=== PATIENT | male | born 1930 | race Caucasian/White ===

== ENCOUNTER → 2016-05-21 | Outpatient (CLI) | payer MEDICARE ==
[~2016-05-21] MED LIST: ASPI-COR81 M1 PO; ATENOLOL25 MG PO; AUGMENTIN 875-875 MG PO; CARBIDOPA AND L1 TAB PO; COREG25 MG PO; COREG3.125 MG PO; COUMADIN1 M1 PO; Coumadin2 MG PO; DAILY MULTIPLE1 TA6 PO; DIABETA5 MG PO; ECONAZOLE NITRATE11 T; FLOMAX0.4 MG PO; FLUDROCORTISON0.1 MG PO; JANTOVEN6 M1 PO; KEFLEX500 M1 PO; LISINOPRIL20 MG PO; LOVASTATIN40 MG PO; METFORMIN HCL500 MG PO; OMEPRAZOLE20 MG PO; OMEPRAZOLE40 MG PO; OXYBUTYNIN CHLO15 MG PO; PAROXETINE HCL10 MG PO; PAROXETINE10 MG PO; SINEMET 25-1001 TAB PO; SINEMET 25-100M1 TAB PO; TAMSULOSIN HCL0.4 MG PO; THE MEDICINE S400 IU PO; TOVIAZ8 MG PO; VESICARE5 MG PO; WARFARIN SOD5 MG PO
[2016-05-21 15:53] LABS: PROTHROMBIN TIME 44.7 SECONDS (9.0-12.4)
== END | disposition home or self-care (01) ==
LOC: LAB 14:47
PROVIDERS: Family Medicine
DX: Z79.01 Long term (current) use of anticoagulants (principal)

== ENCOUNTER → 2016-07-24 | Outpatient (CLI) | payer MEDICARE ==
[2016-07-24 16:17] LABS: HEMOGLOBIN A1c 8.1 % (4.8-5.6)
[2016-07-24 16:33] LABS: ALBUMIN 3.3 gm/dl (3.1-4.5); ALKALINE PHOSPHATASE 119 U/L (45-117); BILIRUBIN, TOTAL 0.4 mg/dl (0.2-1.0); BUN 16 mg/dl (7-24); CARBON DIOXIDE 30 mmol/L (21-32); CHLORIDE 103 mmol/L (98-107); CHOLESTEROL 196 mg/dL (<200); CPK 109 U/L (39-308); EST GLOM FILT AFRICAN AMERICAN > 60 ml/min; GLUCOSE 136 mg/dL (65-99); HDL CHOLESTEROL 58 mg/dl (40-60); LDL CHOLESTEROL 83 mg/dL (9-159); POTASSIUM 3.8 mmol/L (3.5-5.1); SGOT/AST 20 IU/L (3-35); SGPT/ALT 12 U/L (12-78); SODIUM 144 mmol/L (136-145); TOTAL PROTEIN 7.2 gm/dL (6.4-8.2); TRIGLYCERIDES 275 mg/dl (<150); VLDL CHOLESTEROL 55 mg/dL (6-40)
== END | disposition home or self-care (01) ==
LOC: LAB 15:27
PROVIDERS: Family Medicine
DX: E11.9 Type 2 diabetes mellitus without complications (principal); K21.9 Gastro-esophageal reflux disease without esophagitis; I82.409 Acute embolism and thrombosis of unspecified deep veins of unspecified lower extremity; E74.9 Disorder of carbohydrate metabolism, unspecified; E78.00 Pure hypercholesterolemia, unspecified

== ENCOUNTER → 2016-07-31 | Outpatient (CLI) | payer MEDICARE | END | disposition home or self-care (01) | LOC: MRI 15:00 | DX: S09.90XD Unspecified injury of head, subsequent encounter (principal); R42 Dizziness and giddiness; R51 Headache; X58.XXXD Exposure to other specified factors, subsequent encounter; Z91.81 History of falling ==

== ENCOUNTER → 2016-08-08 | Outpatient (CLI) | payer MEDICARE ==
[2016-08-08 16:38] LABS: THYROID STIM HORMONE (HS) 0.538 uIU/ml (0.358-4.75)
[2016-08-08 17:05] LABS: FOLIC ACID 16.1 ng/mL (>5.38)
[2016-08-09 16:11] LABS: LYME AB/TOTAL IMMUNOGLOBULINS <0.91 ISR (0.00-0.90)
== END | disposition home or self-care (01) ==
LOC: LAB 15:23
PROVIDERS: Psychiatry & Neurology Neurology
DX: R41.3 Other amnesia (principal); E56.9 Vitamin deficiency, unspecified

== ENCOUNTER → 2016-08-28 | Outpatient (CLI) | payer MEDICARE ==
[2016-08-28 13:25] LABS: INTERNATIONAL NORM RATIO 4.4 (2.0-3.5); PROTHROMBIN TIME 51.8 SECONDS (9.0-12.4)
== END | disposition home or self-care (01) ==
LOC: LAB 12:36
PROVIDERS: Family Medicine
DX: I48.91 Unspecified atrial fibrillation (principal)

== ENCOUNTER → 2016-09-04 | Outpatient (CLI) | payer MEDICARE | LOC: RAD 12:27 | DX: R05 Cough (principal); R06.02 Shortness of breath; E11.9 Type 2 diabetes mellitus without complications; G20 Parkinson's disease; M25.472 Effusion, left ankle; M25.471 Effusion, right ankle; Z87.891 Personal history of nicotine dependence ==

== ENCOUNTER 2016-09-10 16:58 | Inpatient (IN) | payer MEDICARE ==
[~2016-09-10] VITALS: Ht 167.6 cm; Wt 73.0 kg
--- NOTE | ~2016-09-10 | PR ---
[place], [place] PROGRESS NOTE NAME: UMANG SHERIFF UNIT #: [id number] ROOM: 522 DOCTOR: ROCIO ESPOSITO MD BIRTHDATE: [birth year] DOS: 09/13/2016 SUBJECTIVE: The patient is slowly improving. He is very weak still. PHYSICAL EXAMINATION: VITAL SIGNS: Blood pressure 101/60, heart rate 71 beats per minute, breathing 20 times per minute, temperature 98 degrees Fahrenheit. GENERAL APPEARANCE: The patient is alert and oriented x 3, in no visible distress. Generalized weakness. HEENT AND NECK: Exam within normal limits. CARDIOVASCULAR SYSTEM: Heart rate is regular in rate and rhythm. S1 and S2 normally audible. LUNGS: Clear to auscultation. ABDOMEN: Soft, nontender. No obvious organomegaly. Bowel sounds are present. EXTREMITIES: Without significant cyanosis or edema. IMPRESSION: 1. The patient with acute deep vein thrombosis involving left peroneal and tibial veins. The patient does not want any transfer to a different facility and does not want IVC filter placement or any surgical intervention for this. 2. Subtherapeutic INR for which the patient was given extra Coumadin and also started on subcutaneous Lovenox until his INR becomes therapeutic. 3. Greater than 70% carotid artery stenosis on the right side, which needs surgical evaluation, but the patient not interested in any further workup for this or any other treatment. 4. Generalized weakness and failure to thrive. The patient has difficulty in getting up even with help and ambulating, but he does not want to go to a nursing facility, he would rather go home to his living situation with his . 5. Acute diastolic type congestive heart failure, improved with diuresis. His serum electrolytes, BUN and creatinine have been followed and are staying normal. 6. Chronic atrial fibrillation with controlled heart rates. The patient is anticoagulated. 7. Benign essential hypertension with controlled blood pressures. 8. Parkinson's disease with advanced disability. The patient working with physical therapy. [place], [place] PROGRESS NOTE NAME: UMANG SHERIFF UNIT #: [id number] ROOM: 522 DOCTOR: ROCIO ESPOSITO MD BIRTHDATE: [birth year] ROCIO ESPOSITO MD CM:SKIP [id number] ROCIO ESPOSITO MD 09/14/16 0915 interface
--- NOTE | ~2016-09-10 | DS ---
[place], [place] DISCHARGE SUMMARY NAME: UMANG SHERIFF [facility] #: [id number] UNIT #: [id number] ROOM: 522 DOCTOR: ROCIO ESPOSITO MD BIRTHDATE: [birth year] DOS: 09/14/2016 DISCHARGE DIAGNOSES: 1. Acute deep vein thrombosis involving the left peroneal and left tibial veins, patient already anticoagulated with Coumadin. The patient decided against IVC filter placement or any surgical intervention or transfer to a different facility for further management. 2. Greater than 70% right carotid artery stenosis. The patient decided any other further intervention. 3. Generalized weakness and failure to thrive. 4. Acute diastolic type congestive heart failure, treated with diuresis. 5. Chronic atrial fibrillation with controlled heart rate, the patient anticoagulated with Coumadin. 6. Benign essential hypertension. 7. Parkinson disease with advanced physical disability. HOSPITAL COURSE: The patient with: 1. Acute diastolic type congestive heart failure with peripheral volume overload, treated with IV Bumex. The patient was followed by Cardiology, consult was obtained. The patient appears to have achieved maximal benefit from this admission and will be discharged back to home today. 2. The patient with acute deep vein thrombosis involving the left peroneal and tibial veins for which he decided no further intervention. I got his INR within therapeutic range. The patient understands the increased risk for thromboembolism including pulmonary embolism and the increased risk of from pulmonary embolism, but he wants to be treated conservatively only. 3. 70% right carotid artery stenosis, which increases his risk for stroke, but the patient decided against any other further workup. Dr. Jhon Hanna, the vascular surgeon, was consulted. 4. Generalized weakness and failure to thrive with difficulty walking. The patient only walks with help and is helped by his at home. The patient was kept on physical therapy. 5. Chronic atrial fibrillation with controlled heart rate, the patient adequately anticoagulated with Coumadin. 6. Parkinson disease and disability. The patient is being treated with Sinemet. LABORATORY DATA: INR at 2. Hemoglobin 12.5. Normal serum electrolytes. DISCHARGE MANAGEMENT: Coumadin 5 mg daily, omeprazole 20 mg a day, metformin 500 mg b.i.d., Florinef 0.1 mg daily, Paxil 10 mg a day, Sinemet 25/250 b.i.d., lisinopril 5 mg a day. FOLLOWUP: Follow up with Dr. Brayden Lopez in less than a week of discharge. [place], [place] DISCHARGE SUMMARY NAME: UMANG SHERIFF UNIT #: [id number] ROOM: 522 DOCTOR: ROCIO ESPOSITO MD BIRTHDATE: [birth year] ROCIO ESPOSITO MD CM:FALLON [phone] ROCIO ESPOSITO MD 09/16/16 0041 interface
--- NOTE | ~2016-09-10 | EKG ---
[place], [place] ELECTROCARDIOGRAM REPORT NAME: UMANG SHERIFF UNIT #: [id number] ROOM: 522 DOCTOR: ENMANUEL ROWAN MD BIRTHDATE: [birth year] DOS: 09/10/2016 TIME: 17:50 p.m. Atrial fibrillation with controlled ventricular response. Rate 83, right bundle-branch block, abnormal electrocardiogram. ENMANUEL ROWAN MD CM:EKGRPT:ELECTROCARDIOGRAM REPORT [id number] ENMANUEL ROWAN MD
--- NOTE | ~2016-09-10 | PR ---
[place], [place] PROGRESS NOTE NAME: MUANG SHERIFF [facility] #: [id number] UNIT #: [id number] ROOM: 522 DOCTOR: ENMANUEL ROWAN MD BIRTHDATE: [birth year] DOS: 09/14/2016 CARDIOLOGY PROGRESS NOTE SUBJECTIVE: The patient was seen at his bedside today, 09/14/2016 for followup of peripheral edema. He is an 86-year-old man with a history of atrial fibrillation who is on chronic warfarin anticoagulation. He also was a fall risk given his age and Parkinson's disease. He was admitted to the hospital on this occasion with worsening leg swelling. His left leg was worse than his right and his workup thus far does show that he has a deep venous thrombosis in the left leg below the knee in the left peroneal and posterior tibial veins. He has been treated with warfarin and Lovenox and his leg has improved dramatically. In addition, he was on amlodipine and this was stopped, which also contributed to the improvement in his legs. He now feels considerably better and is anxious for discharge. His vital signs remained stable and his blood pressure is well controlled. PHYSICAL EXAMINATION: VITAL SIGNS: Today, his pulse is 80 and regular, blood pressure is 123/77. He is afebrile. He weighs 73.0 kg and has a body mass index of 26. NECK: Supple. He has no jugular distention. CHEST: Clear. HEART: Has an irregularly irregular rhythm. ABDOMEN: Benign. EXTREMITIES: Showed no edema. IMPRESSION: 1. Left lower extremity deep venous thrombosis below the knee. This has responded to therapy. 2. Type 2 diabetes mellitus. 3. Chronic atrial fibrillation, on warfarin anticoagulation. 4. Hypertension. 5. Parkinson's disease. 6. Chronic diastolic heart failure. 7. 70-90% stenosis of the right internal carotid artery. PLAN: I did discuss with the patient and his the possibility of switching him from warfarin to a direct oral anticoagulant. Today, his INR is 2.0, and therefore, we could make the change since the INR is less than 3. I think that we can safely stop the Lovenox at this point as well. I would continue him off of amlodipine. From my perspective, he could be discharged at any time. The patient does have a high-grade stenosis of his right carotid. This should be evaluated by a surgeon, but again as per Dr. Montiel's note, the patient is not interested in having any surgical evaluation at this time. I thank Dr. Montiel for asking our advice regarding the patient. [place], [place] PROGRESS NOTE NAME: UMANG SHERIFF [facility] UNIT #: [id number] ROOM: 522 DOCTOR: ENMANUEL ROWAN MD BIRTHDATE: [birth year] ENMANUEL ROWAN MD CM:PNTRANS [id number] ENMANUEL ROWAN MD 09/15/16 0959 interface
--- NOTE | ~2016-09-10 | WRIGHTHP ---
[place], [place] PATIENT HISTORY AND PHYSICAL EXAM NAME: UMANG SHERIFF [facility] #: [id number] UNIT #: [id number] ROOM: 522 DOCTOR: ROCIO ESPOSITO MD BIRTHDATE: [birth year] DOS: 09/10/2016 HISTORY OF PRESENT ILLNESS: The patient is an 86-year-old gentleman who presented to the Emergency Department with increasing bilateral leg swelling for about a week. The patient's primary care physician, Dr. Brayden Lopez, sent him to the Emergency Department to be evaluated for progressive congestive heart failure. The patient was somewhat cachectic negative, breathing 22-24 times per minute and was given IV Lasix in the Emergency Department. After admission, the patient says he is starting to feel better. No chest pains. There was some shortness of breath prior to admission, which is improving. No dizziness or fainting episodes. No other GI or urinary symptoms. REVIEW OF SYSTEMS: LUNGS: With some shortness of breath, no wheezing. CARDIOVASCULAR: No palpitations or chest pains. GASTROINTESTINAL: No nausea, vomiting, diarrhea, or constipation. SOCIAL HISTORY: , lives at home with his . Denies smoking cigarettes, alcohol, and drug abuse. FAMILY HISTORY: Noncontributory. MEDICATIONS: The patient takes Coumadin, Sinemet, Bumex, Paxil, Florinef, amlodipine, metformin, omeprazole. ALLERGIES: No known drug allergies. PHYSICAL EXAMINATION: GENERAL: The patient is alert and oriented x 3, in no visible distress, looking somewhat weak, but improving. VITAL SIGNS: Blood pressure 110/58, heart rate 85 beats per minute, breathing 18 times per minute, temperature 98.4 degrees Fahrenheit. HEENT AND NECK: Extraocular movements are intact. Sclerae are anicteric. Oral mucosa is moist and clean. No obvious facial weakness. Neck is supple without any lymphadenopathy. No thyromegaly. No JVD. No carotid arterial bruits. LUNGS: Clear to auscultation. No wheezing. No rhonchi. CARDIOVASCULAR SYSTEM: Heart rate is regular in rate and rhythm. S1 and S2 normally audible. No significant murmur or any other abnormal cardiac sounds. ABDOMEN: Soft, nontender. No obvious organomegaly. Bowel sounds are present. No obvious herniation. EXTREMITIES: 2+ ankle and pedal edema. Warm to touch. CENTRAL NERVOUS SYSTEM: Alert and oriented x 3. Cranial nerves II-XII are intact. Speech is normal. The patient is able to move all extremities. Normal muscle strength. Deep tendon reflexes are equal on both sides. Plantars were downgoing. IMPRESSION AND PLAN: 1. The patient with acute diastolic type congestive heart failure with progressive peripheral volume overload and tachypnea, being treated with diuresis with IV Bumex. I got a consult with Dr. Galo, the dialer, [place], [place] PATIENT HISTORY AND PHYSICAL EXAM [facility]: [facility] [id number] UNIT #: [id number] ROOM: 522 DOCTOR: ROCIO ESPOSITO MD BIRTHDATE: [birth year] to help with management. The patient appears to be improving and if he is doing much better, I may be able to discharge him to home tomorrow evening. 2. Generalized weakness and adult failure to thrive. The patient is 86 years old. He was started on physical therapy. 3. Chronic atrial fibrillation with controlled heart rates. The patient is anticoagulated with Coumadin. 4. Coagulopathy with Coumadin. INR therapeutic at 2.5. 5. Parkinson's disease adding to his disability. The patient continued on Sinemet. 6. Type 2 diabetes mellitus. The patient kept on no concentrated sweet diet. Blood sugars have been monitored and treated. ROCIO ESPOSITO MD CM:HISPHYS:PATIENT HISTORY AND PHYSICAL EXAMINATION [phone] ROCIO ESPOSITO MD 09/11/16 1305 interface
--- NOTE | ~2016-09-10 | PR ---
[place], [place] PROGRESS NOTE NAME: UMANG SHERIFF [facility] #: [id number] UNIT #: [id number] ROOM: 522 DOCTOR: ENMANUEL ROWAN MD BIRTHDATE: [birth year] DOS: 09/12/2016 CARDIOLOGY PROGRESS NOTE SUBJECTIVE: The patient was seen at his bedside today, September 12, 2016, for followup of lower extremity edema. He is an 86-year-old man with a history of atrial fibrillation on chronic warfarin therapy. He also was a fall risk given his age and Parkinson disease. He was admitted to the hospital on this occasion with worsening leg swelling. His left leg was worse than his right and his workup thus far does show that he has a deep venous thrombosis in the left leg below the knee in the left peroneal and posterior tibial veins. This has resulted in pain and swelling of his lower extremity. His initial exam also showed a loud right carotid bruit and his carotid ultrasound does show that he has a 70-90% stenosis of the right internal carotid artery. The patient feels well today. His right leg has returned to normal since we stopped his amlodipine and his left leg is not hurting as much, although it does remain swollen. PHYSICAL EXAMINATION: VITAL SIGNS: Today, his pulse is 76 and irregularly irregular, blood pressure is 130/67. He is afebrile. He weighs 77.3 kilograms. NECK: Supple. He has no jugular distention. Carotids are full. He has a soft bruit on the left and a loud bruit on the right. He has no neck or supraclavicular masses. LUNGS: Respirations are unlabored. His chest is clear. HEART: Has an irregularly irregular rhythm without murmurs or gallops. ABDOMEN: Soft and benign. EXTREMITIES: Right lower extremity is normal. He continues to have pain and tenderness with swelling in his left calf. IMPRESSION: 1. Pedal edema due to the combined effect of amlodipine and a left lower extremity deep venous thrombosis. Other causes such as nephrotic syndrome, renal insufficiency, etc. are also being considered. 2. Type 2 diabetes mellitus. 3. Chronic atrial fibrillation, on warfarin anticoagulation. 4. Hypertension. 5. Parkinson disease. 6. 70-90% stenosis of the right internal carotid artery. PLAN: I would continue to maintain him off of amlodipine and use an BARON inhibitor for his blood pressure control. It is disconcerting that he developed a left lower extremity deep venous thrombosis despite the fact that he was therapeutically anticoagulated with warfarin. For now, we will add subcutaneous enoxaparin to his regimen, but long-term, he may benefit from switching to one of the direct oral anticoagulants such as rivaroxaban for further stroke and DVT prophylaxis since dosing is more reliable and anticoagulant effect is more constant. [place], [place] PROGRESS NOTE NAME: UMANG SHERIFF UNIT #: [id number] ROOM: 522 DOCTOR: ENMANUEL ROWAN MD BIRTHDATE: [birth year] We are still awaiting the rest of his workup as ordered yesterday. I thank Dr. Montiel for asking our advice regarding his care. ENMANUEL ROWAN MD CM:PNTRANS [phone] ENMANUEL ROWAN MD 09/13/16 0133 interface
--- NOTE | ~2016-09-10 | PR ---
[place], [place] PROGRESS NOTE NAME: UMANG SHERIFF UNIT #: [id number] ROOM: 522 DOCTOR: ROCIO ESPOSITO MD BIRTHDATE: [birth year] DOS: 09/12/2016 SUBJECTIVE: The patient is awake, alert, no complaints of any shortness of breath. PHYSICAL EXAMINATION: VITAL SIGNS: Blood pressure 107/71, heart rate 77 beats per minute, breathing 20 times per minute, temperature 98 degrees Fahrenheit. GENERAL APPEARANCE: Generalized weakness. HEENT AND NECK: Exam within normal limits. CARDIOVASCULAR SYSTEM: Heart rate is regular in rate and rhythm. S1 and S2 normally audible. LUNGS: Clear to auscultation. ABDOMEN: Soft, nontender. No obvious organomegaly. Bowel sounds are present. EXTREMITIES: Without significant cyanosis or edema. IMPRESSION: 1. The patient with acute deep vein thrombosis involving left peroneal and tibial veins already anticoagulated with Coumadin. The patient does not want any surgical intervention including IVC filter placement. 2. Greater than 70% stenosis of the right internal carotid artery. Vascular Surgery consulted. The patient apparently does not want any further intervention. 3. Type 2 diabetes mellitus. Blood sugars are being monitored and treated and reasonably controlled. 4. Parkinson disease and advanced disability. The patient needs a lot of help and support to be able to walk. He is on Sinemet. 5. Anticoagulated with Coumadin with INR subtherapeutic at 1.7. The patient already on Lovenox, I gave him extra Coumadin today. 6. Chronic atrial fibrillation. The patient was anticoagulated. 7. Adult failure to thrive and generalized weakness. The patient wants to be treated conservatively. No surgical interventions or transfer to another facility for further treatment. The patient understands the high risk for blood clots into his lungs and also into his brain causing a stroke, weakness and paralysis, but he still does not want any further intervention. Dr. Elizabeth Hanna, the vascular surgeon was consulted for further evaluation and management. 8. Acute diastolic type congestive heart failure, improved with diuresis. [place], [place] PROGRESS NOTE NAME: UMANG SHERIFF UNIT #: [id number] ROOM: 522 DOCTOR: ROCIO ESPOSITO MD BIRTHDATE: [birth year] ROCIO ESPOSITO MD CM:SKIP [phone] ROCIO ESPOSITO MD 09/13/16 1108 interface
[2016-09-10 17:09] VITALS: BP 141/69
[2016-09-10] MEDS ORDERED: PAXIL10 MG PO (17:14)
[2016-09-10] MEDS ORDERED: SINEMET 25-2501 TA1 PO (17:15)
[2016-09-10] MEDS ORDERED: GLUCOPHAGE500 MG PO (17:15)
[2016-09-10] MEDS ORDERED: LASIX40 MG PO (17:15)
[2016-09-10] MEDS ORDERED: NORVASC10 MG PO (17:15)
[2016-09-10] MEDS ORDERED: FLUDROCORTISON0.1 MG PO (17:16)
[2016-09-10] MEDS ORDERED: COUMADIN5 M2 PO (17:16)
[2016-09-10] MEDS ORDERED: VITAMIN D32000 UNI1 PO (17:16)
[2016-09-10] MEDS ORDERED: OMEPRAZOLE20 M2 PO (17:17)
[2016-09-10] MEDS ORDERED: DITROPAN XL15 M1 PO (17:17)
[2016-09-10] MEDS ORDERED: LOVASTATIN40 MG PO (17:17)
[2016-09-10 17:47] LABS: BASO # 0.1 10*3/uL (0.0-0.1); BASO % 0.8 % (0.0-1.0); EOS # 0.5 10*3/uL (0.0-0.4); EOS % 6.2 % (1.0-4.0); HEMATOCRIT 37.4 % (42.0-52.0); HEMOGLOBIN 11.8 g/dl (14.0-18.0); LYMPH # 1.6 10*3/uL (1.3-4.4); LYMPH % 21.4 % (27.0-41.0); MEAN CELL VOLUME 85.6 fl (80.0-94.0); MEAN CORPUSCULAR HGB CONC 31.6 g/dl (33.0-37.0); MONO # 0.9 10*3/uL (0.1-1.0); MONO % 11.3 % (3.0-9.0); NEUT # 4.6 10*3/uL (2.3-7.9); PLATELET COUNT AUTOMATED 225 10*3/uL (130-400); RED BLOOD COUNT 4.37 10*6/uL (4.50-5.90); RED CELL DISTRI WIDTH 14.8 % (0-14.5); WHITE BLOOD COUNT 7.6 10*3/uL (4.8-10.8)
[2016-09-10 17:58] LABS: INTERNATIONAL NORM RATIO 2.5 (2.0-3.5); PROTHROMBIN TIME 28.5 SECONDS (9.0-12.4)
[2016-09-10 18:02] LABS: ALKALINE PHOSPHATASE 127 U/L (45-117); BILIRUBIN, TOTAL 0.3 mg/dl (0.2-1.0); BUN 22 mg/dl (7-24); CARBON DIOXIDE 27 mmol/L (21-32); CHLORIDE 105 mmol/L (98-107); EST GLOM FILT AFRICAN AMERICAN > 60 ml/min; GLUCOSE 249 mg/dL (65-99); MAGNESIUM 2.1 mg/dL (1.5-2.1); POTASSIUM 4.1 mmol/L (3.5-5.1); SGOT/AST 20 IU/L (3-35); SGPT/ALT 21 U/L (12-78); SODIUM 143 mmol/L (136-145)
[2016-09-10 18:07] LABS: TROPONIN I < 0.015 ng/ml (<0.045)
[2016-09-10 18:39] VITALS: BP 134/96
[2016-09-10 19:07] VITALS: BP 139/67
[2016-09-10 19:30] VITALS: BP 139/67
[2016-09-11] VITALS: BP 120/61
[2016-09-11 07:33] LABS: BUN 18 mg/dl (7-24); CARBON DIOXIDE 33 mmol/L (21-32); CHLORIDE 104 mmol/L (98-107); EST GLOM FILT AFRICAN AMERICAN > 60 ml/min; GLUCOSE 152 mg/dL (65-99); POTASSIUM 3.6 mmol/L (3.5-5.1); SODIUM 143 mmol/L (136-145)
[2016-09-11 07:35] LABS: INTERNATIONAL NORM RATIO 2.3 (2.0-3.5); PROTHROMBIN TIME 26.1 SECONDS (9.0-12.4)
[2016-09-11 08:00] VITALS: BP 110/58
[2016-09-11 16:00] VITALS: BP 104/68
[2016-09-12] VITALS: BP 130/67
[2016-09-12 07:35] LABS: BUN 21 mg/dl (7-24); CARBON DIOXIDE 33 mmol/L (21-32); CHLORIDE 103 mmol/L (98-107); EST GLOM FILT AFRICAN AMERICAN > 60 ml/min; GLUCOSE 159 mg/dL (65-99); POTASSIUM 3.9 mmol/L (3.5-5.1); SODIUM 144 mmol/L (136-145)
[2016-09-12 07:55] LABS: INTERNATIONAL NORM RATIO 1.7 (2.0-3.5); PROTHROMBIN TIME 18.9 SECONDS (9.0-12.4)
[2016-09-12 08:00] VITALS: BP 113/73
[2016-09-12 12:00] VITALS: BP 119/58
[2016-09-12 13:01] VITALS: BP 113/65
[2016-09-12 16:00] VITALS: BP 107/71
[2016-09-12 20:00] VITALS: BP 120/74
[2016-09-13] VITALS: BP 105/61
[2016-09-13 05:51] LABS: BASO % 0.7 % (0.0-1.0); EOS # 0.4 10*3/uL (0.0-0.4); HEMATOCRIT 39.5 % (42.0-52.0); HEMOGLOBIN 12.4 g/dl (14.0-18.0); LYMPH # 1.5 10*3/uL (1.3-4.4); LYMPH % 25.7 % (27.0-41.0); MEAN CELL VOLUME 85.7 fl (80.0-94.0); MEAN CORPUSCULAR HGB 26.9 pg (27.0-31.0); MEAN CORPUSCULAR HGB CONC 31.4 g/dl (33.0-37.0); MONO # 0.8 10*3/uL (0.1-1.0); MONO % 13.4 % (3.0-9.0); NEUT # 3.2 10*3/uL (2.3-7.9); PLATELET COUNT AUTOMATED 234 10*3/uL (130-400); RED BLOOD COUNT 4.61 10*6/uL (4.50-5.90); RED CELL DISTRI WIDTH 14.7 % (0-14.5); WHITE BLOOD COUNT 5.8 10*3/uL (4.8-10.8)
[2016-09-13 06:06] LABS: BUN 24 mg/dl (7-24); CARBON DIOXIDE 35 mmol/L (21-32); CHLORIDE 103 mmol/L (98-107); EST GLOM FILT AFRICAN AMERICAN > 60 ml/min; GLUCOSE 140 mg/dL (65-99); POTASSIUM 3.6 mmol/L (3.5-5.1); SODIUM 145 mmol/L (136-145)
[2016-09-13 06:18] LABS: INTERNATIONAL NORM RATIO 1.7 (2.0-3.5); PROTHROMBIN TIME 19.1 SECONDS (9.0-12.4)
[2016-09-13 08:00] VITALS: BP 101/60
[2016-09-13 16:00] VITALS: BP 95/56
[2016-09-14] VITALS: BP 111/73
[2016-09-14 06:39] LABS: PROTHROMBIN TIME 21.6 SECONDS (9.0-12.4)
[2016-09-14 08:00] VITALS: BP 123/77
[2016-09-14 16:00] VITALS: BP 146/90
[2016-09-14] MEDS ORDERED: LISINOPRIL5 MG PO (18:51)
== END 2016-09-14 20:16 | disposition home or self-care (01) | DRG 299 ==
LOC: ED 16:58 → 5E 18:21 → EDHOLD 18:21 → 5E 19:58
PROVIDERS: Internal Medicine; Registered Nurse
DX: I82.442 Acute embolism and thrombosis of left tibial vein (principal); I50.31 Acute diastolic (congestive) heart failure; D68.9 Coagulation defect, unspecified; E11.65 Type 2 diabetes mellitus with hyperglycemia; G20 Parkinson's disease; I65.21 Occlusion and stenosis of right carotid artery; I11.0 Hypertensive heart disease with heart failure; R62.7 Adult failure to thrive; I48.2 Chronic atrial fibrillation; E78.5 Hyperlipidemia, unspecified; Z79.01 Long term (current) use of anticoagulants; Z79.899 Other long term (current) drug therapy; Z87.81 Personal history of (healed) traumatic fracture; Z90.49 Acquired absence of other specified parts of digestive tract; Z82.49 Family history of ischemic heart disease and other diseases of the circulatory system; Z83.3 Family history of diabetes mellitus

== ENCOUNTER → 2016-10-04 | Outpatient (CLI) | payer MEDICARE ==
[~2016-10-04] MED LIST changes: +COUMADIN5 M2 PO; +DITROPAN XL15 M1 PO; +GLUCOPHAGE500 MG PO; +LASIX40 MG PO; +LISINOPRIL5 MG PO; +NORVASC10 MG PO; +OMEPRAZOLE20 M2 PO; +PAXIL10 MG PO; +SINEMET 25-2501 TA1 PO; +VITAMIN D32000 UNI1 PO
== END | disposition home or self-care (01) ==
LOC: LAB 15:30
PROVIDERS: Family Medicine
DX: I48.91 Unspecified atrial fibrillation (principal)

== ENCOUNTER → 2016-12-10 | Outpatient (CLI) | payer MEDICARE ==
[2016-12-10 16:56] LABS: HEMATOCRIT 39.7 % (42.0-52.0); HEMOGLOBIN 12.4 g/dl (14.0-18.0); MEAN CELL VOLUME 86.1 fl (80.0-94.0); MEAN CORPUSCULAR HGB 26.9 pg (27.0-31.0); MEAN CORPUSCULAR HGB CONC 31.2 g/dl (33.0-37.0); MEAN PLATELET VOLUME 10.5 fl (9.6-12.3); RED BLOOD COUNT 4.61 10*6/uL (4.50-5.90); RED CELL DISTRI WIDTH 14.6 % (0-14.5); WHITE BLOOD COUNT 7.4 10*3/uL (4.8-10.8)
[2016-12-10 17:24] LABS: ALBUMIN 3.1 gm/dl (3.1-4.5); ALKALINE PHOSPHATASE 118 U/L (45-117); BILIRUBIN, TOTAL 0.3 mg/dl (0.2-1.0); BUN 23 mg/dl (7-24); CARBON DIOXIDE 29 mmol/L (21-32); CHLORIDE 102 mmol/L (98-107); CHOLESTEROL 174 mg/dL (<200); EST GLOM FILT AFRICAN AMERICAN > 60 ml/min; GLUCOSE 242 mg/dL (65-99); HDL CHOLESTEROL 44 mg/dl (40-60); LDL CHOLESTEROL 76 mg/dL (9-159); POTASSIUM 3.2 mmol/L (3.5-5.1); SGOT/AST 18 IU/L (3-35); SGPT/ALT 13 U/L (12-78); SODIUM 141 mmol/L (136-145); TRIGLYCERIDES 272 mg/dl (<150); VLDL CHOLESTEROL 54 mg/dL (6-40)
[2016-12-11 20:09] LABS: TESTOSTERONE FREE, (DIRECT) 0.6 pg/mL (6.6-18.1)
== END | disposition home or self-care (01) ==
LOC: LAB 16:31
PROVIDERS: Family Medicine
DX: E78.00 Pure hypercholesterolemia, unspecified (principal); E55.9 Vitamin D deficiency, unspecified; Z79.01 Long term (current) use of anticoagulants

== ENCOUNTER → 2016-12-29 | Outpatient (CLI) | payer MEDICARE ==
[2016-12-29 17:37] LABS: INTERNATIONAL NORM RATIO 1.2 (2.0-3.5)
== END | disposition home or self-care (01) ==
LOC: LAB 17:07
PROVIDERS: Family Medicine
DX: I48.91 Unspecified atrial fibrillation (principal)

== ENCOUNTER → 2017-01-07 | Outpatient (CLI) | payer MEDICARE ==
[2017-01-07 16:23] LABS: INTERNATIONAL NORM RATIO 1.2 (2.0-3.5)
== END | disposition home or self-care (01) ==
LOC: LAB 15:52
PROVIDERS: Family Medicine
DX: I48.91 Unspecified atrial fibrillation (principal)

== ENCOUNTER → 2017-02-21 | Outpatient (CLI) | payer MEDICARE ==
[2017-02-21 15:52] LABS: INTERNATIONAL NORM RATIO 2.2 (2.0-3.5)
== END | disposition home or self-care (01) ==
LOC: LAB 14:51
PROVIDERS: Family Medicine
DX: I48.91 Unspecified atrial fibrillation (principal)

== ENCOUNTER → 2017-03-11 | Outpatient (CLI) | payer MEDICARE ==
[2017-03-11 11:39] LABS: HEMOGLOBIN 12.8 g/dl (14.0-18.0); MEAN CELL VOLUME 84.2 fl (80.0-94.0); MEAN CORPUSCULAR HGB 26.3 pg (27.0-31.0); MEAN CORPUSCULAR HGB CONC 31.2 g/dl (33.0-37.0); MEAN PLATELET VOLUME 10.5 fl (9.6-12.3); RED BLOOD COUNT 4.87 10*6/uL (4.50-5.90); RED CELL DISTRI WIDTH 14.9 % (0-14.5); WHITE BLOOD COUNT 7.2 10*3/uL (4.8-10.8)
[2017-03-11 12:15] LABS: ALBUMIN 3.4 gm/dl (3.1-4.5); ALKALINE PHOSPHATASE 134 U/L (45-117); BUN 17 mg/dl (7-24); CHLORIDE 104 mmol/L (98-107); CHOLESTEROL 207 mg/dL (<200); CREATININE 1.07 mg/dL (0.70-1.30); HDL CHOLESTEROL 54 mg/dl (40-60); LDL CHOLESTEROL 131 mg/dL (9-159); POTASSIUM 3.3 mmol/L (3.5-5.1); SGOT/AST 20 IU/L (3-35); SGPT/ALT 20 U/L (12-78); SODIUM 143 mmol/L (136-145); TOTAL PROTEIN 7.7 gm/dL (6.4-8.2); TRIGLYCERIDES 109 mg/dl (<150); VLDL CHOLESTEROL 22 mg/dL (6-40)
== END | disposition home or self-care (01) ==
LOC: LAB 11:06
PROVIDERS: Family Medicine
DX: E78.00 Pure hypercholesterolemia, unspecified (principal); I10 Essential (primary) hypertension; E55.9 Vitamin D deficiency, unspecified

== ENCOUNTER → 2017-05-03 | Outpatient (CLI) | payer MEDICARE ==
[2017-05-03 15:26] LABS: INTERNATIONAL NORM RATIO 1.5 (2.0-3.5)
== END | disposition home or self-care (01) ==
LOC: LAB 14:24
PROVIDERS: Family Medicine
DX: I48.91 Unspecified atrial fibrillation (principal)

== ENCOUNTER → 2017-05-22 | Outpatient (CLI) | payer MEDICARE ==
[2017-05-22 15:05] LABS: INTERNATIONAL NORM RATIO 2.7 (2.0-3.5)
== END | disposition home or self-care (01) ==
LOC: LAB 14:12
PROVIDERS: Family Medicine
DX: I48.91 Unspecified atrial fibrillation (principal)

== ENCOUNTER → 2017-06-23 | Outpatient (CLI) | payer MEDICARE ==
[2017-06-23 17:30] LABS: INTERNATIONAL NORM RATIO 3.4 (2.0-3.5)
== END | disposition home or self-care (01) ==
LOC: LAB 17:00
PROVIDERS: Family Medicine
DX: I48.91 Unspecified atrial fibrillation (principal)

== ENCOUNTER → 2017-07-29 | Outpatient (CLI) | payer MEDICARE ==
[2017-07-29 17:00] LABS: INTERNATIONAL NORM RATIO 2.5 (2.0-3.5)
== END | disposition home or self-care (01) ==
LOC: LAB 16:34
PROVIDERS: Family Medicine
DX: I48.91 Unspecified atrial fibrillation (principal)

== ENCOUNTER 2017-08-11 02:18 | Emergency (ER) | payer MEDICARE ==
[~2017-08-11] VITALS: Ht 167.6 cm; Wt 68.0 kg
[2017-08-11 03:14] LABS: BASO # 0.1 10*3/uL (0.0-0.1); BASO % 0.6 % (0.0-1.0); EOS # 0.3 10*3/uL (0.0-0.4); HEMOGLOBIN 12.4 g/dl (14.0-18.0); LYMPH # 1.3 10*3/uL (1.3-4.4); LYMPH % 16.1 % (27.0-41.0); MEAN CELL VOLUME 84.9 fl (80.0-94.0); MEAN CORPUSCULAR HGB 25.7 pg (27.0-31.0); MEAN CORPUSCULAR HGB CONC 30.2 g/dl (33.0-37.0); MEAN PLATELET VOLUME 10.1 fl (9.6-12.3); MONO # 0.8 10*3/uL (0.1-1.0); MONO % 9.1 % (3.0-9.0); NEUT # 5.7 10*3/uL (2.3-7.9); NEUT % 69.6 % (47.0-73.0); PLATELET COUNT AUTOMATED 211 10*3/uL (130-400); RED BLOOD COUNT 4.83 10*6/uL (4.50-5.90); RED CELL DISTRI WIDTH 14.8 % (0-14.5); WHITE BLOOD COUNT 8.2 10*3/uL (4.8-10.8)
[2017-08-11 03:30] LABS: ALBUMIN 3.2 gm/dl (3.1-4.5); ALKALINE PHOSPHATASE 170 U/L (45-117); BUN 14 mg/dl (7-24); CHLORIDE 98 mmol/L (98-107); CREATININE 1.38 mg/dL (0.70-1.30); POTASSIUM 3.7 mmol/L (3.5-5.1); SGOT/AST 19 IU/L (3-35); SGPT/ALT 22 U/L (12-78); SODIUM 138 mmol/L (136-145); TOTAL PROTEIN 7.5 gm/dL (6.4-8.2)
[2017-08-11 03:31] LABS: TROPONIN I < 0.015 ng/ml (<0.045)
[2017-08-11 03:36] LABS: THYROID STIM HORMONE (HS) 0.714 uIU/ml (0.358-4.75)
== END 2017-08-11 10:30 | disposition short-term general hospital (02) ==
LOC: ED 02:18
PROVIDERS: Emergency Medicine Emergency Medical Services
DX: S22.32XA Fracture of one rib, left side, initial encounter for closed fracture (principal); S00.03XA Contusion of scalp, initial encounter; I48.91 Unspecified atrial fibrillation; Z90.49 Acquired absence of other specified parts of digestive tract; Z98.890 Other specified postprocedural states; Z79.01 Long term (current) use of anticoagulants; Z79.899 Other long term (current) drug therapy; W19.XXXA Unspecified fall, initial encounter; Y93.89 Activity, other specified; Y92.091 Bathroom in other non-institutional residence as the place of occurrence of the external cause; Y99.9 Unspecified external cause status

== ENCOUNTER → 2017-09-22 | Outpatient (CLI) | payer MEDICARE ==
[2017-09-22 12:05] LABS: HEMATOCRIT 39.4 % (42.0-52.0); HEMOGLOBIN 11.8 g/dl (14.0-18.0); MEAN CELL VOLUME 85.8 fl (80.0-94.0); MEAN CORPUSCULAR HGB 25.7 pg (27.0-31.0); MEAN CORPUSCULAR HGB CONC 29.9 g/dl (33.0-37.0); MEAN PLATELET VOLUME 10.5 fl (9.6-12.3); RED BLOOD COUNT 4.59 10*6/uL (4.50-5.90); RED CELL DISTRI WIDTH 15.9 % (0-14.5); WHITE BLOOD COUNT 6.6 10*3/uL (4.8-10.8)
[2017-09-22 12:20] LABS: ALBUMIN 3.1 gm/dl (3.1-4.5); ALKALINE PHOSPHATASE 109 U/L (45-117); BUN 13 mg/dl (7-24); CHLORIDE 106 mmol/L (98-107); CHOLESTEROL 155 mg/dL (<200); CREATININE 1.06 mg/dL (0.70-1.30); HDL CHOLESTEROL 48 mg/dl (40-60); LDL CHOLESTEROL 84 mg/dL (9-159); POTASSIUM 4.2 mmol/L (3.5-5.1); SGOT/AST 14 IU/L (3-35); SGPT/ALT 15 U/L (12-78); SODIUM 143 mmol/L (136-145); TOTAL PROTEIN 6.9 gm/dL (6.4-8.2); TRIGLYCERIDES 117 mg/dl (<150); VLDL CHOLESTEROL 23 mg/dL (6-40)
[2017-09-22 12:41] LABS: INTERNATIONAL NORM RATIO 4.7 (2.0-3.5)
== END | disposition home or self-care (01) ==
LOC: LAB 11:18
PROVIDERS: Family Medicine
DX: E78.00 Pure hypercholesterolemia, unspecified (principal); E11.9 Type 2 diabetes mellitus without complications; E55.9 Vitamin D deficiency, unspecified; I10 Essential (primary) hypertension; Z79.01 Long term (current) use of anticoagulants

== ENCOUNTER → 2017-10-01 | Outpatient (CLI) | payer MEDICARE ==
[~2017-10-01] MED LIST changes: +'CYPROHEPTADINE4 MG PO; +CARVEDILOL3.125 MG PO; +DIABETA,MICRO1.25 MG PO; +FINASTERIDE5 M1 PO; +TOPROL XL25 MG PO
[2017-10-01 16:05] LABS: INTERNATIONAL NORM RATIO 3.3 (2.0-3.5)
== END | disposition home or self-care (01) ==
LOC: LAB 15:15
PROVIDERS: Family Medicine
DX: I48.91 Unspecified atrial fibrillation (principal)

== ENCOUNTER 2017-10-13 09:59 | Inpatient (IN) | payer MEDICARE ==
[~2017-10-13] VITALS: Ht 167.6 cm; Wt 72.8 kg
--- NOTE | ~2017-10-13 | PR ---
[place], [place] PROGRESS NOTE NAME: UMANG SHERIFF [facility] #: [id number] UNIT #: [id number] ROOM: 505 DOCTOR: ROCIO ESPOSITO MD BIRTHDATE: [birth year] DOS: 10/15/2017 SUBJECTIVE: The patient is asymptomatic. No nausea, vomiting, diarrhea or constipation, but remains quite weak and has difficulty in walking. PHYSICAL EXAMINATION: GENERAL APPEARANCE: The patient is alert and oriented x 3, in no visible distress. Generalized weakness. VITAL SIGNS: Blood pressure 135/78, heart rate 80 beats per minute, breathing 18 times per minute, temperature 98.1 degrees Fahrenheit. HEENT AND NECK: Exam within normal limits. CARDIOVASCULAR SYSTEM: Heart rate is regular in rate and rhythm. S1 and S2 normally audible. LUNGS: Clear to auscultation. ABDOMEN: Soft, nontender. No obvious organomegaly. Bowel sounds are present. EXTREMITIES: Without significant cyanosis or edema. IMPRESSION: 1. The patient with acute hypokalemia with potassium level of 2.8, may be a lab error. The patient is on Lasix chronically and no potassium supplements, but there is a sudden drop of potassium level from 3.7 yesterday to 2.8 today. It may be a lab error, so I am repeating a stat potassium level and will treat accordingly. The patient's potassium level is actually low. He will need to be on potassium supplements on regular basis. 2. Adult failure to thrive, generalized weakness. The patient undergoing physical therapy and waiting for transfer [facility], so he can start walking better and may be able to go back home where he lives with his . 3. Benign essential hypertension, treated and controlled. 4. Type 2 diabetes mellitus with well controlled blood sugars, despite of patient's metformin being stopped. 5. Acute kidney failure related to the patient, not getting enough fluids in from poor appetite, returned to baseline with hydration with normal saline. 6. Poor appetite and failure to thrive. The patient has been started on Periactin. His appetite is still poor. I will increase the dose. 7. Chronic atrial fibrillation. The patient was taken off Coumadin even prior to this admission and he has been having recurrent falls, so will I let his primary care physician decide later on if he can be put back on anticoagulation for atrial fibrillation. 8. Parkinson's disease and advanced disability. The patient working with physical therapy. 9. Benign prostatic hypertrophy and urine retention, being treated and asymptomatic. The patient on finasteride. 10. Major depression, recurrent, mild, treated and controlled with Paxil. [place], [place] PROGRESS NOTE NAME: UMANG SHERIFF UNIT #: [id number] ROOM: [facility] DOCTOR: ROCIO ESPOSITO MD BIRTHDATE: [birth year] ROCIO ESPOSITO MD CM:PNELLYN [phone] ROCIO ESPOSITO MD 10/15/17 1412 interface
--- NOTE | ~2017-10-13 | DS ---
[place], [place] DISCHARGE SUMMARY NAME: UMANG SHERIFF [facility] #: [id number] UNIT #: [id number] ROOM: 505 DOCTOR: ROCIO ESPOSITO MD BIRTHDATE: [birth year] DOS: 10/16/2017 DISCHARGE DIAGNOSES: 1. Generalized weakness and adult failure to thrive. 2. Parkinson disease. 3. Poor appetite. 4. Type 2 diabetes mellitus. 5. Acute over chronic kidney failure. 6. Mixed hyperlipidemia. 7. Benign essential hypertension. 8. Chronic atrial fibrillation. The patient's anticoagulation was stopped prior to this admission as an outpatient. 9. History of chronic urinary retention and incontinence. 10. Mixed hyperlipidemia. 11. History of major depression, recurrent. 12. Chronic atrial fibrillation. 13. Chronic diastolic-type congestive heart failure. 14. Generalized anxiety disorder. 15. Greater than 70% right carotid artery stenosis. The patient decided against any treatment in the past. 16. History of deep venous thrombosis involving left peroneal, left tibial veins and the patient decided against IVC filter placement or any surgical intervention in the past. HOSPITAL COURSE: The patient presented to the hospital with decreased appetite, very weak, having difficulty with walking and surviving at home. The patient had been sleeping on the floor and was unable to get up in the morning because of the weakness. The patient was admitted for advanced adult failure to thrive and for [facility] placement and physical therapy. The patient was admitted and started on hydration with normal saline. He was in acute kidney failure. 1. Acute kidney failure, treated with hydration with normal saline and serum electrolytes were monitored and followed and he apparently improved to his baseline. 2. Severe adult failure to thrive. The patient practically sleeping on the floor because he was unable to get onto his bed and unable to get up from the floor either. The patient was kept on physical therapy and ultimately sent to [facility]. 3. Mixed hyperlipidemia. The patient is being treated with lovastatin. 4. Benign essential hypertension, treated and controlled. His Toprol and Coreg were continued. 5. Chronic atrial fibrillation with controlled heart rates. The patient's anticoagulation was ordered, he stopped prior to this admission. DISCHARGE MEDICATIONS: Sinemet 25/250 daily, Coreg 3.125 mg b.i.d., Proscar 5 mg daily, Florinef 0.1 mg daily, Lasix 40 mg a day, glyburide 1.25 mg daily, Zestril 5 mg a day, Toprol-XL 25 mg daily, Paxil 30 mg a day, Prilosec 40 mg a day. [place], [place] DISCHARGE SUMMARY NAME: UMANG SHERIFF UNIT #: [id number] ROOM: [facility] DOCTOR: ROCIO ESPOSITO MD BIRTHDATE: [birth year] ROCIO ESPOSITO MD CM:DISCHARG 99 ROCIO ESPOSITO MD 11/06/17 0010 interface
--- NOTE | ~2017-10-13 | WRIGHTHP ---
[place], [place] PATIENT HISTORY AND PHYSICAL EXAM NAME: UMANG SHERIFF [facility] #: [id number] UNIT #: [id number] ROOM: 505 DOCTOR: ROCIO ESPOSITO MD BIRTHDATE: [birth year] DOS: 10/13/2017 HISTORY OF PRESENT ILLNESS: The patient is an 87-year-old gentleman with a past medical history of: 1. Adult failure to thrive. 2. 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 The patient had decided against IVC filter or any surgical intervention in the past. 3. Greater than 70% right carotid artery stenosis. The patient decided against any further treatment. 4. History of generalized anxiety disorder and failure to thrive. 5. The patient with chronic diastolic type congestive heart failure. 6. Chronic atrial fibrillation with controlled heart rates. 7. Benign essential hypertension. 8. Parkinson's disease with advanced physical disability. 9. History of major depression, recurrent. 10. Type 2 diabetes mellitus. 11. Mixed hyperlipidemia. 12. Urinary incontinence. 13. Urine retention. The patient lives at home with his and his appetite had decreased recently and he was getting very weak and was having difficulty with walking and surviving at home. The patient has been sleeping on the floor, but was unable to get up in the morning from the weakness. The patient was seen in the Emergency Department by Dr. Fine and he was recommended for admission and further management. After admission, the patient to be kept on physical therapy, hydrated with normal saline and we will try to get him to fpc facility for rehabilitation. FAMILY HISTORY: Noncontributory. HOME MEDICATIONS: The patient takes Paxil, omeprazole, Coreg, glyburide, metoprolol, finasteride, metformin, Sinemet, furosemide. The patient's Coumadin had already been stopped prior to his admission according to the patient. Oxybutynin and lovastatin also he takes along with vitamin D. PHYSICAL EXAMINATION: GENERAL: Alert and oriented x 3, in no visible distress except for generalized weakness. HEENT AND NECK: Extraocular movements are intact. Sclerae are anicteric. Oral mucosa is moist and clean. No obvious facial weakness. Neck is supple without any lymphadenopathy. No thyromegaly. No JVD. No carotid arterial bruits. LUNGS: Clear to auscultation. No wheezing. No rhonchi. CARDIOVASCULAR SYSTEM: Heart rate is regular in rate and rhythm. S1 and S2 normally audible. No significant murmur or any other abnormal cardiac sounds. ABDOMEN: Soft, nontender. No obvious organomegaly. Bowel sounds are present. No obvious herniation. EXTREMITIES: Without significant cyanosis or edema. Warm to touch. CENTRAL NERVOUS SYSTEM: Alert and oriented x 3. Cranial nerves II-XII are [place], [place] PATIENT HISTORY AND PHYSICAL EXAM [facility]: [facility] [id number] UN[facility] #: [id number] ROOM: [facility] DOCTOR: ROCIO ESPOSITO MD BIRTHDATE: [birth year] intact. Speech is normal. The patient is able to move all extremities. Normal muscle strength. Deep tendon reflexes are equal on both sides. Plantars were downgoing. IMPRESSION: 1. Generalized weakness, adult failure to thrive with Parkinson's disease, to be treated with physical therapy and I will continue Sinemet and will try to get him to fpc facility for rehabilitation. 2. Poor appetite, decreased eating and increased weakness, to be treated with appetite stimulation. 3. Type 2 diabetes mellitus. We will keep him on concentrated sweet diet. Monitor his sugars and then treat accordingly. 4. Acute over chronic kidney disease with acute kidney failure. The patient's metformin was stopped also because it is not a good medication at his age. 5. Mixed hyperlipidemia. We will continue treatment with lovastatin. 6. Benign essential hypertension. I will continue treatment with Toprol and Coreg, which is also to control his heart rate and follow closely. 7. Chronic atrial fibrillation with controlled heart rates. The patient is not anticoagulated with Coumadin anymore, the Coumadin was stopped as an outpatient prior to this admission, possibly because of his recurrent falls. I will keep it on hold. ROCIO ESPOSITO MD CM:HISPHYS:PATIENT HISTORY AND PHYSICAL EXAMINATION 0900 1055 ROCIO ESPOSITO MD 10/14/17 1054 interface
[2017-10-13 09:59] VITALS: BP 115/68
[~2017-10-13 09:59] MED LIST changes: -'CYPROHEPTADINE4 MG PO; -CARVEDILOL3.125 MG PO; -DIABETA,MICRO1.25 MG PO; -FINASTERIDE5 M1 PO; -TOPROL XL25 MG PO
[2017-10-13 10:12] LABS: BASO # 0.1 10*3/uL (0.0-0.1); BASO % 0.7 % (0.0-1.0); EOS # 0.6 10*3/uL (0.0-0.4); EOS % 7.8 % (1.0-4.0); HEMATOCRIT 39.1 % (42.0-52.0); HEMOGLOBIN 12.3 g/dl (14.0-18.0); LYMPH # 1.5 10*3/uL (1.3-4.4); LYMPH % 20.6 % (27.0-41.0); MEAN CELL VOLUME 84.6 fl (80.0-94.0); MEAN CORPUSCULAR HGB 26.6 pg (27.0-31.0); MEAN CORPUSCULAR HGB CONC 31.5 g/dl (33.0-37.0); MEAN PLATELET VOLUME 9.9 fl (9.6-12.3); MONO # 0.8 10*3/uL (0.1-1.0); MONO % 11.1 % (3.0-9.0); NEUT # 4.3 10*3/uL (2.3-7.9); NEUT % 59.7 % (47.0-73.0); PLATELET COUNT AUTOMATED 179 10*3/uL (130-400); RED BLOOD COUNT 4.62 10*6/uL (4.50-5.90); RED CELL DISTRI WIDTH 16.5 % (0-14.5); WHITE BLOOD COUNT 7.2 10*3/uL (4.8-10.8)
[2017-10-13 10:22] LABS: ACT PARTIAL THROMBO TIME 24.2 SECONDS (20.8-31.5); INTERNATIONAL NORM RATIO 1.1 (2.0-3.5)
[2017-10-13 10:30] LABS: ALBUMIN 3.5 gm/dl (3.1-4.5); CREATININE 1.84 mg/dL (0.70-1.30); POTASSIUM 4.5 mmol/L (3.5-5.1); TOTAL PROTEIN 7.4 gm/dL (6.4-8.2)
[2017-10-13 10:33] LABS: CKMB 4.3 ng/ml (0.5-3.6); CPK 213 U/L (39-308)
[2017-10-13 10:35] LABS: TROPONIN I < 0.015 ng/ml (<0.045)
[2017-10-13 11:19] VITALS: BP 127/70
[2017-10-13] MEDS ORDERED: CARVEDILOL3.125 MG PO (11:49)
[2017-10-13] MEDS ORDERED: DIABETA,MICRO1.25 MG PO (11:50)
[2017-10-13] MEDS ORDERED: TOPROL XL25 MG PO (11:51)
[2017-10-13] MEDS ORDERED: FINASTERIDE5 M1 PO (11:52)
[2017-10-13 12:00] VITALS: BP 145/90; BP 148/90
[2017-10-13 12:09] VITALS: BP 145/90
[2017-10-13 16:00] VITALS: BP 103/66
[2017-10-13 20:00] VITALS: BP 106/51
[2017-10-14] VITALS: BP 108/73
[2017-10-14 07:43] LABS: BASO # 0.1 10*3/uL (0.0-0.1); BASO % 1.1 % (0.0-1.0); EOS # 0.8 10*3/uL (0.0-0.4); EOS % 14.9 % (1.0-4.0); HEMATOCRIT 37.4 % (42.0-52.0); HEMOGLOBIN 11.6 g/dl (14.0-18.0); LYMPH # 1.2 10*3/uL (1.3-4.4); LYMPH % 22.1 % (27.0-41.0); MEAN CELL VOLUME 85.4 fl (80.0-94.0); MEAN CORPUSCULAR HGB 26.5 pg (27.0-31.0); MONO # 0.7 10*3/uL (0.1-1.0); MONO % 12.1 % (3.0-9.0); NEUT # 2.7 10*3/uL (2.3-7.9); NEUT % 49.6 % (47.0-73.0); PLATELET COUNT AUTOMATED 171 10*3/uL (130-400); RED BLOOD COUNT 4.38 10*6/uL (4.50-5.90); WHITE BLOOD COUNT 5.4 10*3/uL (4.8-10.8)
[2017-10-14 08:00] VITALS: BP 132/77
[2017-10-14 08:14] LABS: BUN 21 mg/dl (7-24); CHLORIDE 107 mmol/L (98-107); CREATININE 1.08 mg/dL (0.70-1.30); POTASSIUM 3.7 mmol/L (3.5-5.1); SODIUM 143 mmol/L (136-145)
[2017-10-14 11:44] VITALS: BP 142/79
[2017-10-14 15:43] VITALS: BP 135/80
[2017-10-14 20:00] VITALS: BP 113/64
[2017-10-15] VITALS: BP 113/63
[2017-10-15 07:10] LABS: BUN 18 mg/dl (7-24); CHLORIDE 105 mmol/L (98-107); CREATININE 1.01 mg/dL (0.70-1.30); POTASSIUM 2.8 mmol/L (3.5-5.1); SODIUM 143 mmol/L (136-145)
[2017-10-15 08:00] VITALS: BP 135/78
[2017-10-15 10:21] LABS: BUN 17 mg/dl (7-24); CHLORIDE 104 mmol/L (98-107); CREATININE 1.19 mg/dL (0.70-1.30); POTASSIUM 3.1 mmol/L (3.5-5.1); SODIUM 142 mmol/L (136-145)
[2017-10-15 12:00] VITALS: BP 95/58
[2017-10-15 16:00] VITALS: BP 108/64
[2017-10-15 20:00] VITALS: BP 112/68
[2017-10-16] VITALS: BP 142/86
[2017-10-16 07:29] LABS: BUN 18 mg/dl (7-24); CHLORIDE 106 mmol/L (98-107); CREATININE 1.16 mg/dL (0.70-1.30); POTASSIUM 3.4 mmol/L (3.5-5.1); SODIUM 144 mmol/L (136-145)
[2017-10-16 08:00] VITALS: BP 129/80
[2017-10-16 12:00] VITALS: BP 123/70
[2017-10-16 16:00] VITALS: BP 103/85
[2017-10-16] MEDS ORDERED: 'CYPROHEPTADINE4 MG PO (16:57)
== END 2017-10-16 19:00 | disposition other institution (70) | DRG 683 ==
LOC: ED 09:59 → EDHOLD 10:44 → 5E 10:44
PROVIDERS: Internal Medicine; Nurse Practitioner Family
DX: N17.0 Acute kidney failure with tubular necrosis (principal); I50.32 Chronic diastolic (congestive) heart failure; I48.2 Chronic atrial fibrillation; G20 Parkinson's disease; F33.0 Major depressive disorder, recurrent, mild; I11.0 Hypertensive heart disease with heart failure; E87.6 Hypokalemia; N40.1 Benign prostatic hyperplasia with lower urinary tract symptoms; R33.8 Other retention of urine; R62.7 Adult failure to thrive; E11.9 Type 2 diabetes mellitus without complications; F41.1 Generalized anxiety disorder; E78.2 Mixed hyperlipidemia; Z79.84 Long term (current) use of oral hypoglycemic drugs; Z79.01 Long term (current) use of anticoagulants; Z79.899 Other long term (current) drug therapy; Z86.73 Personal history of transient ischemic attack (TIA), and cerebral infarction without residual deficits; Z87.81 Personal history of (healed) traumatic fracture; Z90.49 Acquired absence of other specified parts of digestive tract; Z83.3 Family history of diabetes mellitus; Z84.89 Family history of other specified conditions; Z86.718 Personal history of other venous thrombosis and embolism; N18.9 Chronic kidney disease, unspecified

== ENCOUNTER → 2017-11-10 | Outpatient (CLI) | payer MEDICARE ==
[~2017-11-10] MED LIST changes: +'CYPROHEPTADINE4 MG PO; +CARVEDILOL3.125 MG PO; +DIABETA,MICRO1.25 MG PO; +FINASTERIDE5 M1 PO; +TOPROL XL25 MG PO
[2017-11-10 13:40] LABS: HEMATOCRIT 36.9 % (42.0-52.0); HEMOGLOBIN 11.2 g/dl (14.0-18.0); MEAN CELL VOLUME 87.6 fl (80.0-94.0); MEAN CORPUSCULAR HGB 26.6 pg (27.0-31.0); MEAN CORPUSCULAR HGB CONC 30.4 g/dl (33.0-37.0); MEAN PLATELET VOLUME 10.8 fl (9.6-12.3); RED BLOOD COUNT 4.21 10*6/uL (4.50-5.90); RED CELL DISTRI WIDTH 16.8 % (0-14.5); WHITE BLOOD COUNT 6.4 10*3/uL (4.8-10.8)
[2017-11-10 14:10] LABS: CHLORIDE 101 mmol/L (98-107); SODIUM 143 mmol/L (136-145)
[2017-11-10 14:17] LABS: ALBUMIN 3.3 gm/dl (3.1-4.5); ALKALINE PHOSPHATASE 89 U/L (45-117); BUN 18 mg/dl (7-24); CHOLESTEROL 164 mg/dL (<200); CPK 340 U/L (39-308); CREATININE 1.14 mg/dL (0.70-1.30); HDL CHOLESTEROL 47 mg/dl (40-60); LDL CHOLESTEROL 92 mg/dL (9-159); SGOT/AST 17 IU/L (3-35); TRIGLYCERIDES 126 mg/dl (<150); VLDL CHOLESTEROL 25 mg/dL (6-40)
[2017-11-10 14:21] LABS: SGPT/ALT < 6 U/L (12-78)
[2017-11-10 14:40] LABS: VITAMIN D, 25-HYDROXY 46.5 ng/mL (30-100)
== END | disposition home or self-care (01) ==
LOC: LAB 12:42
PROVIDERS: Family Medicine
DX: E78.00 Pure hypercholesterolemia, unspecified (principal); E11.9 Type 2 diabetes mellitus without complications; D64.9 Anemia, unspecified; E55.9 Vitamin D deficiency, unspecified; R53.83 Other fatigue

== ENCOUNTER → 2017-12-02 | Outpatient (CLI) | payer MEDICARE | END | disposition home or self-care (01) | LOC: LAB 16:06 | PROVIDERS: Family Medicine | DX: I48.91 Unspecified atrial fibrillation (principal) ==

== ENCOUNTER → 2017-12-10 | Outpatient (CLI) | payer MEDICARE ==
[2017-12-10 14:32] LABS: INTERNATIONAL NORM RATIO 1.1 (2.0-3.5)
== END | disposition home or self-care (01) ==
LOC: LAB 13:22
PROVIDERS: Family Medicine
DX: I48.91 Unspecified atrial fibrillation (principal)

== ENCOUNTER → 2018-01-27 | Outpatient (CLI) | payer MEDICARE ==
[~2018-01-27] MED LIST changes: +COUMADIN2.5 M1 PO; +KLOR-CON M2020 ME1 PO
== END | disposition home or self-care (01) ==
LOC: LAB 15:17
PROVIDERS: Family Medicine
DX: I48.91 Unspecified atrial fibrillation (principal)

== ENCOUNTER → 2018-02-16 | Outpatient (CLI) | payer MEDICARE ==
[~2018-02-16] MED LIST changes: -COUMADIN2.5 M1 PO; -KLOR-CON M2020 ME1 PO
[2018-02-16 14:46] LABS: INTERNATIONAL NORM RATIO 1.2 (2.0-3.5)
== END | disposition home or self-care (01) ==
LOC: LAB 14:22
PROVIDERS: Family Medicine
DX: I48.91 Unspecified atrial fibrillation (principal)

== ENCOUNTER → 2018-02-24 | Outpatient (CLI) | payer MEDICARE ==
[2018-02-24 16:30] LABS: INTERNATIONAL NORM RATIO 1.4 (2.0-3.5)
== END | disposition home or self-care (01) ==
LOC: LAB 15:02
PROVIDERS: Family Medicine
DX: I48.91 Unspecified atrial fibrillation (principal)

== ENCOUNTER → 2018-03-06 | Outpatient (CLI) | payer MEDICARE ==
[2018-03-06 16:29] LABS: INTERNATIONAL NORM RATIO 2.5 (2.0-3.5)
== END | disposition home or self-care (01) ==
LOC: LAB 15:43
PROVIDERS: Family Medicine
DX: I48.91 Unspecified atrial fibrillation (principal)

== ENCOUNTER → 2018-04-06 | Outpatient (CLI) | payer MEDICARE | END | disposition home or self-care (01) | LOC: LAB 13:41 | PROVIDERS: Family Medicine | DX: I48.91 Unspecified atrial fibrillation (principal) ==

== ENCOUNTER 2018-04-19 12:00 | Inpatient (IN) | payer MEDICARE ==
[~2018-04-19] VITALS: Ht 172.7 cm; Wt 68.7 kg
--- NOTE | ~2018-04-19 | PR ---
[place], [place] PROGRESS NOTE NAME: UMANG SHERIFF UNIT #: [id number] ROOM: 424 DOCTOR: ROCIO ESPOSITO MD BIRTHDATE: [birth year] DOS: 04/20/2018 SUBJECTIVE: The patient is quite weak, waiting for placement, pleasantly confused, wants to watch news on the television, but unable to turn it on. PHYSICAL EXAMINATION: GENERAL APPEARANCE: The patient is alert and oriented x 3, in no visible distress. Generalized weakness. VITAL SIGNS: Blood pressure 104/68, heart rate of 84 beats per minute, breathing 14 times per minute, afebrile. HEENT AND NECK: Exam within normal limits. CARDIOVASCULAR SYSTEM: Heart rate is regular in rate and rhythm. S1 and S2 normally audible. LUNGS: Clear to auscultation. ABDOMEN: Soft, nontender. No obvious organomegaly. Bowel sounds are present. EXTREMITIES: Without significant cyanosis or edema. IMPRESSION: 1. Late onset Alzheimer's type dementia and mental confusion. I will start him on Exelon patch. 2. Advance adult failure to thrive. The patient's is unable to take care of him at home. The patient is working with physical therapy and waiting for placement in a group home. 3. Parkinson's disease, treated with Sinemet. 4. The patient on Coumadin with subtherapeutic INR, protime is to be monitored. ROCIO ESPOSITO MD CM:PNTRANS [phone] ROCIO ESPOSITO MD 04/20/18 2335 interface
--- NOTE | ~2018-04-19 | EKG ---
[place], [place] ELECTROCARDIOGRAM REPORT NAME: UMANG SHERIFF UNIT #: [id number] ROOM: 424 DOCTOR: VANESSA DRAFT REPORT BIRTHDATE: [birth year] [facility] Test Date: 2018-04-19 Test Time: 12:27:01 Pat Name: UMANG SHERIFF Department: Room: 424 Gender: M [employer] Up [employer]ger: Dary Guidry : 1930 Requested By: EVE WARD Order Number: [id number] Reading MD: Marcelo Galo MD Measurements Intervals [place] Rate: 82 P: [place]: QRS: 88 QRSD: 135 T: -34 QT: 369 QTc: 431 Interpretive Statements Atrial fibrillation Right bundle branch block No previous ECG available for comparison Electronically Signed On 04-20-2018 16:36:37 PST by Marcelo Galo MD CM:EKGRPT:ELECTROCARDIOGRAM REPORT [id number] EVE MENDEZ DRAFT REPORT EVE WARD MD
--- NOTE | ~2018-04-19 | DS ---
[place], [place] DISCHARGE SUMMARY NAME: UMANG SHERIFF [facility] #: [id number] UNIT #: [id number] ROOM: 424 DOCTOR: ROCIO ESPOSITO MD BIRTHDATE: [birth year] DOS: 04/23/2018 DISCHARGE DIAGNOSES: 1. Advanced adult failure to thrive. 2. 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 3. The patient maintains a DNRCC code status. 4. Type 2 diabetes mellitus. 5. Mixed hyperlipidemia. 6. Mild protein-calorie malnutrition. 7. Late onset Alzheimer's type dementia and mental confusion, Parkinson's disease. 8. Type 2 diabetes mellitus. 9. Chronic atrial fibrillation. The patient anticoagulated with Coumadin. 10. Benign essential hypertension, chronic urinary retention and incontinence. 11. Major depression, recurrent. 12. Chronic diastolic type congestive heart failure. 13. Generalized anxiety disorder. 14. Greater than 70% right carotid artery stenosis. The patient's power of litigation attorney decided against treatment in the past. 15. History of deep venous thrombosis of the left peroneal and left tibial vein thrombosis, decided against IVC filter placement or any surgical intervention in the past. HOSPITAL COURSE: The patient presented to the [facility] Emergency Department because his is unable to take care of him at home because of his progressive decreased activities of daily living. While patient was at the hospital, he appeared to develop left facial droop and left-sided weakness grade 5-, probably from a new infarct. CT of the head did not show any acute abnormality. 1. Advance adult failure to thrive and progressive decline in his health. The patient's has changed his code status to DNRCC and patient being transferred to [facility] for continued long-term care. 2. Mixed hyperlipidemia, has been treated with simvastatin. 3. Type 2 diabetes mellitus. Blood sugars are being monitored and treated. The patient was on metformin, which was discontinued because of chronic diarrhea. 4. Parkinson's disease. The patient remains on Sinemet. Advance disability. 5. Chronic atrial fibrillation. The patient anticoagulated with Coumadin and was given extra dose of Coumadin because his INR was subtherapeutic. 6. History of deep venous thrombosis of the left peroneal and left tibial veins. LABORATORY DATA: Ammonia level normal. INR is finally starting to come up with extra dose of Coumadin and INR was 1.[address] of the head without contrast did not show any new acute abnormality. DISCHARGE MANAGEMENT: Coumadin 2.5 mg alternating with 5 mg every other day. Follow protimes. Sinemet 25/250 t.i.d., finasteride 5 mg a day, furosemide 40 mg a day, Paxil 30 mg a day, glyburide 1.25 mg daily, metformin 500 mg b.i.d., omeprazole 40 mg daily, Coreg 3.125 mg b.i.d., simvastatin 40 mg a day, [place], [place] DISCHARGE SUMMARY NAME: UMANG SHERIFF UNIT #: [id number] ROOM: 424 DOCTOR: ROCIO ESPOSITO MD BIRTHDATE: [birth year] 0.1 mg b.i.d. and potassium chloride 20 mEq b.i.d. ROCIO ESPOSITO MD CM:DISCHARG 1715 1734 ROCIO ESPOSITO MD 04/23/18 1732 interface
--- NOTE | ~2018-04-19 | PR ---
[place], [place] PROGRESS NOTE NAME: [facility]ERIFF [facility] [id number] UNIT #: [id number] ROOM: 424 DOCTOR: ROCIO ESPOSITO MD BIRTHDATE: [birth year] DOS: 04/22/2018 OBJECTIVE: VITAL SIGNS: Blood pressure 157/87, heart rate of 94 beats per minute, breathing 18 times per minute, temperature 98.1 degrees Fahrenheit. GENERAL APPEARANCE: The patient is alert and oriented x 3, in no visible distress. HEENT AND NECK: Exam within normal limits. CARDIOVASCULAR SYSTEM: Heart rate is regular in rate and rhythm. S1 and S2 normally audible. LUNGS: Clear to auscultation. ABDOMEN: Soft, nontender. No obvious organomegaly. Bowel sounds are present. EXTREMITIES: Without significant cyanosis or edema. NEUROLOGIC: Left-sided grade 5- weakness, mental confusion, generalized weakness. IMPRESSION: 1. The patient with decline in health status and advance adult failure to thrive, [place] [facility] [place] [facility]. 2. Left-sided weakness and suspected right-sided cerebral infarct, not seen on the CT of the head performed yesterday. 3. Late onset Alzheimer's type dementia and mental confusion. 4. Treat, the patient started on Exelon. 5. Subtherapeutic INR, on Coumadin. I will give him extra Coumadin today. He is getting Coumadin on daily basis. 6. Type 2 diabetes mellitus. Blood sugars being monitored and controlled. 7. Mixed hyperlipidemia, treated with simvastatin. 8. Mild protein-calorie malnutrition. The patient is working with dietary. ROCIO ESPOSITO MD CM:PNTRANS 1102 1408 ROCIO ESPOSITO MD 04/22/18 1407 interface
--- NOTE | ~2018-04-19 | WRIGHTHP ---
[place], [place] PATIENT HISTORY AND PHYSICAL EXAM NAME: UMANG SHERIFF [facility] #: [id number] UNIT #: [id number] ROOM: 424 DOCTOR: ROCIO ESPOSITO MD BIRTHDATE: [birth year] DOS: 04/19/2018 HISTORY OF PRESENT ILLNESS: The patient is an 87-year-old gentleman with a past medical history of: 1. Advanced adult failure to thrive. 2. Parkinson's disease. 3. Type 2 diabetes mellitus. 4. Chronic kidney disease. 5. Chronic atrial fibrillation. 6. Benign essential hypertension. 7. History of chronic urinary retention and incontinence. 8. Mixed hyperlipidemia. 9. Major depression. 10. Chronic diastolic type CHF. 11. Generalized anxiety disorder. 12. Greater than 70% right carotid artery stenosis. The patient had decided against any treatment in the past. 13. History of DVT and left peroneal and left tibial vein thrombosis, decided against IVC filter placement or any other surgical intervention in the past. The patient was brought over to [facility] Emergency Department by his for being unable to take care of himself and she was not able to take care of him anymore. The patient was falling repeatedly and had generalized weakness. The patient's appetite has not been good and he has been eating only off and on. The patient was recommended for admission and placement to a jail, recurrent falls and ambulatory dysfunction. No chest pain, no shortness of breath, no GI or urinary symptoms. SYSTEMS REVIEW: RESPIRATORY: No increasing shortness of breath or wheezing. GASTROINTESTINAL: No nausea, vomiting, diarrhea or constipation. CARDIOVASCULAR SYSTEM: No chest pain or palpitations. HOME MEDICATIONS: The patient takes Sinemet, Coreg, vitamin D, finasteride, furosemide, glyburide, lovastatin, metformin, omeprazole, oxybutynin, paroxetine, potassium, Coumadin. SOCIAL HISTORY: The patient is . Denies smoking cigarettes, alcohol and drug abuse. FAMILY HISTORY: Noncontributory. ALLERGIES: No known drug allergies. PHYSICAL EXAMINATION: GENERAL: Awake, alert, poor historian. No visible distress. Generalized weakness. VITAL SIGNS: Blood pressure 125/78, breathing normally, afebrile. HEENT AND NECK: Extraocular movements are intact. Sclerae are anicteric. Oral mucosa is moist and clean. No obvious facial weakness. Neck is supple without [facility] [place], [place] PATIENT HISTORY AND PHYSICAL EXAM NAME: UMANG SHERIFF UNIT #: [id number] ROOM: 424 DOCTOR: ROCIO ESPOSITO MD BIRTHDATE: [birth year] any lymphadenopathy. No thyromegaly. No JVD. No carotid arterial bruits. LUNGS: Clear to auscultation. No wheezing. No rhonchi. CARDIOVASCULAR SYSTEM: Heart rate is regular in rate and rhythm. S1 and S2 normally audible. No significant murmur or any other abnormal cardiac sounds. ABDOMEN: Soft, nontender. No obvious organomegaly. Bowel sounds are present. No obvious herniation. EXTREMITIES: Without significant cyanosis or edema. Warm to touch. CENTRAL NERVOUS SYSTEM: Alert and oriented x 3. Cranial nerves II-XII are intact. Speech is normal. The patient is able to move all extremities. Normal muscle strength. Deep tendon reflexes are equal on both sides. Plantars were downgoing. LABORATORY DATA: CT of the head, no acute process. CT of the cervical spine without acute abnormality. Normal serum electrolytes. PT, PTT were baseline. Hemoglobin 12.9. No acute fracture. IMPRESSION: 1. The patient with advanced adult failure to thrive, multiple recurrent falls and generalized weakness. The patient admitted and started on physical therapy and consult has been obtained with case management and executive secretary social welfare for placement to [facility] on the patient's 's request. I am recommending a DNR comfort care code status while the patient maintains a DNR arrest code status. 2. Mixed hyperlipidemia, treated with simvastatin, which has been continued. 3. Type 2 diabetes mellitus. Blood sugars will be monitored and treated. The patient on metformin, which is being continued. 4. Benign prostatic hypertrophy and urine retention, being treated. No new symptoms. 5. Parkinson's disease, treated with Sinemet, which is being continued. 6. Chronic atrial fibrillation. The patient anticoagulated with Coumadin. 7. The patient has history of deep venous thrombosis involving left peroneal and left tibial veins in the past. 8. Benign essential hypertension, treated and followed. [place], [place] PATIENT HISTORY AND PHYSICAL EXAM NAME: UMANG SHERIFF UNIT #: [id number] ROOM: 424 DOCTOR: ROCIO EPSOSITO MD BIRTHDATE: [birth year] ROCIO ESPOSITO MD CM:HISPHYS:PATIENT HISTORY AND PHYSICAL EXAMINATION 99 6 ROCIO ESPOSITO MD 04/20/186 interface
--- NOTE | ~2018-04-19 | PR ---
[place], [place] PROGRESS NOTE NAME[facility]IFF [id number] UNIT #: [id number] ROOM: 424 DOCTOR: ROCIO ESPOSITO MD BIRTHDATE: [birth year] DOS: 04/21/2018 VITAL SIGNS: Blood pressure 172/110, heart rate of 107 beats per minute, afebrile, breathing normally. OBJECTIVE: Some increased weakness and mental confusion earlier, but the patient moving all extremities. Evaluated with CT of the head, which did not show any acute abnormality. Ammonia level was normal at 16. Normal serum electrolytes, bilirubin and liver enzymes. No leukocytosis. Hemoglobin was 13.2. INR baseline. PHYSICAL EXAMINATION: Same. Generalized weakness. The patient is awake, alert, confused and vital signs were already dictated, please go with them. IMPRESSION: 1. Advanced adult failure to thrive with some decline in mental status, increased lethargy and weakness, evaluated with CT of the head, complete blood work and the patient is moving all extremities. Ammonia levels are also normal. We will continue to follow him closely. 2. Mixed hyperlipidemia, being treated and followed. The patient on simvastatin. 3. Type 2 diabetes mellitus. Blood sugars have been well controlled. 4. Parkinson's disease, treated with Sinemet. The patient working with physical therapy. 5. The patient on Coumadin with subtherapeutic INR. Protimes are being monitored daily. 6. Advance adult failure to thrive. The patient working with physical therapy. 7. Late onset Alzheimer's type dementia and mental confusion. The patient started on Exelon patch. ROCIO ESPOSITO MD CM:PNTRANS 1733 0604 ROCIO ESPOSITO MD 04/22/18 0603 interface
[2018-04-19 12:00] VITALS: BP 136/72
[2018-04-19 12:32] LABS: BASO # 0.1 10*3/uL (0.0-0.1); BASO % 0.7 % (0.0-1.0); EOS # 0.1 10*3/uL (0.0-0.4); EOS % 1.3 % (1.0-4.0); HEMATOCRIT 40.7 % (42.0-52.0); HEMOGLOBIN 12.9 g/dl (14.0-18.0); LYMPH % 13.3 % (27.0-41.0); MEAN CELL VOLUME 88.7 fl (80.0-94.0); MEAN CORPUSCULAR HGB 28.1 pg (27.0-31.0); MEAN CORPUSCULAR HGB CONC 31.7 g/dl (33.0-37.0); MEAN PLATELET VOLUME 10.1 fl (9.6-12.3); MONO # 0.8 10*3/uL (0.1-1.0); MONO % 10.7 % (3.0-9.0); NEUT # 5.5 10*3/uL (2.3-7.9); NEUT % 73.9 % (47.0-73.0); PLATELET COUNT AUTOMATED 173 10*3/uL (130-400); RED BLOOD COUNT 4.59 10*6/uL (4.50-5.90); RED CELL DISTRI WIDTH 14.5 % (0-14.5); WHITE BLOOD COUNT 7.5 10*3/uL (4.8-10.8)
[2018-04-19 12:39] LABS: ACT PARTIAL THROMBO TIME 22.3 SECONDS (20.8-31.5)
[2018-04-19 12:48] LABS: BUN 27 mg/dl (7-24); CHLORIDE 108 mmol/L (98-107); CREATININE 1.25 mg/dL (0.70-1.30); POTASSIUM 4.1 mmol/L (3.5-5.1); SODIUM 141 mmol/L (136-145)
[2018-04-19 12:54] LABS: TROPONIN I < 0.015 ng/ml (<0.045)
[2018-04-19 14:00] VITALS: BP 128/68
[2018-04-19] MEDS ORDERED: KLOR-CON M2020 ME1 PO (14:31)
[2018-04-19] MEDS ORDERED: COUMADIN2.5 M1 PO (14:35)
[2018-04-19] MEDS ORDERED: COUMADIN5 M2 PO (14:36)
[2018-04-19 16:00] VITALS: BP 125/78
[2018-04-19 20:00] VITALS: BP 97/40
[2018-04-20] VITALS: BP 114/67
[2018-04-20 08:00] VITALS: BP 112/67
[2018-04-20 12:30] VITALS: BP 107/68
[2018-04-20 20:00] VITALS: BP 113/83
[2018-04-21] VITALS: BP 146/93
[2018-04-21 08:00] VITALS: BP 115/65
[2018-04-21 08:11] LABS: INTERNATIONAL NORM RATIO 1.1 (2.0-3.5)
[2018-04-21 12:00] VITALS: BP 118/74
[2018-04-21 16:00] VITALS: BP 172/110
[2018-04-21 16:24] LABS: BASO # 0.1 10*3/uL (0.0-0.1); BASO % 0.6 % (0.0-1.0); EOS # 0.1 10*3/uL (0.0-0.4); EOS % 0.9 % (1.0-4.0); HEMATOCRIT 41.9 % (42.0-52.0); HEMOGLOBIN 13.2 g/dl (14.0-18.0); LYMPH # 1.3 10*3/uL (1.3-4.4); LYMPH % 13.7 % (27.0-41.0); MEAN CELL VOLUME 86.9 fl (80.0-94.0); MEAN CORPUSCULAR HGB 27.4 pg (27.0-31.0); MEAN CORPUSCULAR HGB CONC 31.5 g/dl (33.0-37.0); MEAN PLATELET VOLUME 10.1 fl (9.6-12.3); NEUT # 7.1 10*3/uL (2.3-7.9); NEUT % 74.6 % (47.0-73.0); PLATELET COUNT AUTOMATED 188 10*3/uL (130-400); RED BLOOD COUNT 4.82 10*6/uL (4.50-5.90); RED CELL DISTRI WIDTH 14.5 % (0-14.5); WHITE BLOOD COUNT 9.5 10*3/uL (4.8-10.8)
[2018-04-21 16:43] LABS: ALKALINE PHOSPHATASE 119 U/L (45-117); BUN 22 mg/dl (7-24); CHLORIDE 106 mmol/L (98-107); CREATININE 1.25 mg/dL (0.70-1.30); POTASSIUM 4.4 mmol/L (3.5-5.1); SGOT/AST 54 IU/L (3-35); SGPT/ALT 31 U/L (12-78); SODIUM 137 mmol/L (136-145); TOTAL PROTEIN 7.1 gm/dL (6.4-8.2)
[2018-04-21 17:30] VITALS: BP 160/92
[2018-04-22] VITALS: BP 129/89
[2018-04-22 08:00] VITALS: BP 157/87
[2018-04-22 08:15] LABS: INTERNATIONAL NORM RATIO 1.1 (2.0-3.5)
[2018-04-22 16:00] VITALS: BP 159/75
[2018-04-23] VITALS: BP 125/72
[2018-04-23 07:13] LABS: INTERNATIONAL NORM RATIO 1.3 (2.0-3.5)
[2018-04-23 08:00] VITALS: BP 136/74
[2018-04-23 16:00] VITALS: BP 150/95
== END 2018-04-23 18:05 | disposition other institution (70) | DRG 640 ==
LOC: ED 12:00 → EDHOLD 13:07 → 4E 13:07
PROVIDERS: Emergency Medicine; Internal Medicine
DX: R62.7 Adult failure to thrive (principal); I63.89 Other cerebral infarction; G81.94 Hemiplegia, unspecified affecting left nondominant side; E44.1 Mild protein-calorie malnutrition; I50.32 Chronic diastolic (congestive) heart failure; F33.9 Major depressive disorder, recurrent, unspecified; I13.0 Hypertensive heart and chronic kidney disease with heart failure and stage 1 through stage 4 chronic kidney disease, or unspecified chronic kidney disease; R53.1 Weakness; G20 Parkinson's disease; I48.2 Chronic atrial fibrillation; Z66 Do not resuscitate; Z51.5 Encounter for palliative care; R29.810 Facial weakness; E11.22 Type 2 diabetes mellitus with diabetic chronic kidney disease; N18.9 Chronic kidney disease, unspecified; E78.2 Mixed hyperlipidemia; F41.1 Generalized anxiety disorder; I65.21 Occlusion and stenosis of right carotid artery; R29.6 Repeated falls; E78.5 Hyperlipidemia, unspecified; F02.80 Dementia in other diseases classified elsewhere, unspecified severity, without behavioral disturbance, psychotic disturbance, mood disturbance, and anxiety; G30.1 Alzheimer's disease with late onset; Z86.718 Personal history of other venous thrombosis and embolism; Z90.49 Acquired absence of other specified parts of digestive tract; Z82.49 Family history of ischemic heart disease and other diseases of the circulatory system; Z83.3 Family history of diabetes mellitus; Z68.23 Body mass index [BMI] 23.0-23.9, adult

== ENCOUNTER 2018-04-25 07:36 | Emergency (ER) | payer MEDICARE ==
[~2018-04-25] VITALS: Wt 77.1 kg
--- NOTE | ~2018-04-25 | EKG ---
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
[~2018-04-25 07:36] MED LIST changes: +COUMADIN2.5 M1 PO; +KLOR-CON M2020 ME1 PO
== END 2018-04-25 08:37 | disposition home or self-care (01) ==
LOC: ED 07:36
DX: I48.91 Unspecified atrial fibrillation (principal); I11.0 Hypertensive heart disease with heart failure; I50.9 Heart failure, unspecified; E11.9 Type 2 diabetes mellitus without complications; E78.5 Hyperlipidemia, unspecified; Z51.5 Encounter for palliative care; Z79.84 Long term (current) use of oral hypoglycemic drugs; Z79.899 Other long term (current) drug therapy; Z79.01 Long term (current) use of anticoagulants; Z90.49 Acquired absence of other specified parts of digestive tract